=== PATIENT | male | born 1975 | race Caucasian/White ===

== ENCOUNTER 2019-05-09 13:37 | Observation (INO) ==
[2019-05-09 14:09] LABS: Basophils # 0.1 K/mcL (0.0-0.2); Basophils % 0.6 %; Eosinophils % 0.1 %; Hematocrit 47.1 % (37.5-50.1); Hemoglobin 16.3 g/dL (12.9-16.9); Immature Granulocytes % 0.6 % (0-4); Lymphocytes # 1.1 K/mcL (0.6-4.6); Lymphocytes % 9.1 %; Mean Corpuscular HGB Conc 34.6 g/dL (31.6-35.5); Mean Corpuscular Hemoglobin 30.1 pg (28.0-33.3); Mean Corpuscular Volume 86.9 fL (83.0-100.0); Mean Platelet Volume 8.9 fL (9.4-12.4); Monocytes # 0.7 K/mcL (0.0-1.3); Monocytes % 5.8 %; Neutrophils # 10.5 K/mcL (1.6-8.9); Platelet Count 339 K/mcL (140-400); Red Blood Count 5.42 M/mcL (4.19-5.50); Red Cell Distribution Width 12.4 % (11.5-14.5); Segmented Neutrophils % 83.8 %; White Blood Count 12.6 K/mcL (4.3-11.1)
[2019-05-09 14:35] LABS: BUN/Creatinine Ratio 8 (6-26); Blood Urea Nitrogen 10 mg/dL (6-20); Calcium 9.5 mg/dL (8.6-10.3); Carbon Dioxide 32 mEq/L (23-29); Chloride 97 mEq/L (98-107); Glucose 119 mg/dL (70-105); Osmolality,Calculated 288 (280-300); Potassium 3.1 mEq/L (3.5-5.1); Sodium 139 mEq/L (136-145); Troponin I < 0.03 ng/mL (< 0.04); eGFR For African Americans > 60 (> 60); eGFR For Non-African Americans > 60 (> 60)
[2019-05-09] MEDS ORDERED: 0.9 % Sodium Chloride 1,000 ML IVC ONE (14:41)
[2019-05-09] MEDS ORDERED: Ketorolac 15 MG/ML VIAL IVP ONE (14:41)
[2019-05-09] MEDS ORDERED: *HR* HYDROcodone/Acet 5/325 mg TABLET PO ONE (14:41)
[2019-05-09] MEDS ORDERED: Isovue-370 500 ML BOTTLE IVP ONE (15:02)
[2019-05-09] MEDS ORDERED: methylPREDNISolone 125 MG/2 ML VIAL IVP ONE (15:56)
[2019-05-09] MEDS ORDERED: Ipratropium/Albuterol Neb 3 ML IH ONE (15:56)
[2019-05-09] MEDS ORDERED: Azithromycin 500 MG in D5% in Water 250 ML IVPB ONE (16:06)
[2019-05-09 20:26] LABS: Adenovirus Not Detected (Not Detect); Bordetella Pertussis Not Detected (Not Detect); Chlamydophila pneumoniae Not Detected (Not Detect); Coronavirus 229E Not Detected (Not Detect); Coronavirus HKU1 Not Detected (Not Detect); Coronavirus NL63 Not Detected (Not Detect); Coronavirus OC43 Not Detected (Not Detect); Human Metapneumovirus Not Detected (Not Detect); Human Rhinovirus/Enterovirus Not Detected (Not Detect); Influenza A Subtype 2009 H1 Not Detected (Not Detect); Influenza B Not Detected (Not Detect); Mycoplasma pneumoniae Not Detected (Not Detect); Parainfluenza Virus 1 Not Detected (Not Detect); Parainfluenza Virus 2 Not Detected (Not Detect); Parainfluenza Virus 3 Not Detected (Not Detect); Parainfluenza Virus 4 Not Detected (Not Detect); Respiratory Syncytial Virus Not Detected (Not Detect)
[2019-05-09] MEDS ORDERED: Naloxone 0.4 MG/ML INJ IVP PRN (22:07)
[2019-05-09] MEDS ORDERED: Albuterol 2.5 MG/3 ML NEBULIZER IH PRN (22:10)
[2019-05-09] MEDS ORDERED: Acetaminophen 325 MG TABLET PO PRN (22:12)
[2019-05-09] MEDS ORDERED: Ondansetron 4 MG/2 ML VIAL IVP PRN (22:12)
[2019-05-09] MEDS: Nicotine 21 MG PATCH.TD24 TD SCH (22:27)
[2019-05-09] MEDS: Ipratropium/Albuterol Neb 3 ML IH SCH (22:34)
[2019-05-09] MEDS: *HR* Heparin 5,000 UNIT/ML VIAL SQ SCH (23:19)
[2019-05-10] MEDS ORDERED: Aspirin 325 MG TABLET PO ONE (00:29)
[2019-05-10 02:13] LABS: Hemoglobin 15.5 g/dL (12.9-16.9); Mean Corpuscular HGB Conc 33.7 g/dL (31.6-35.5); Mean Corpuscular Hemoglobin 29.8 pg (28.0-33.3); Mean Corpuscular Volume 88.3 fL (83.0-100.0); Platelet Count 321 K/mcL (140-400); Red Blood Count 5.21 M/mcL (4.19-5.50); Red Cell Distribution Width 12.4 % (11.5-14.5)
[2019-05-10 02:41] LABS: BUN/Creatinine Ratio 12 (6-26); Blood Urea Nitrogen 12 mg/dL (6-20); Calcium 9.1 mg/dL (8.6-10.3); Carbon Dioxide 25 mEq/L (23-29); Chloride 105 mEq/L (98-107); Glucose 187 mg/dL (70-105); Magnesium 2.2 mg/dL (1.6-2.6); Osmolality,Calculated 287 (280-300); Phosphorous 1.8 mg/dL (2.7-4.5); Potassium 4.4 mEq/L (3.5-5.1); Sodium 136 mEq/L (136-145); eGFR For African Americans > 60 (> 60); eGFR For Non-African Americans > 60 (> 60)
[2019-05-10] MEDS: Ipratropium/Albuterol Neb 3 ML IH SCH ×4 (03:52→22:30)
[2019-05-10] MEDS: *HR* Heparin 5,000 UNIT/ML VIAL SQ SCH ×2 (05:21→17:14)
[2019-05-10] MEDS ORDERED: Regadenoson 0.4 MG/5 ML SYRINGE IVP ONE (06:03)
[2019-05-10] MEDS: predniSONE 20 MG TABLET PO SCH (09:45)
[2019-05-10] MEDS: Nicotine 21 MG PATCH.TD24 TD SCH (09:45)
[2019-05-10] MEDS: 0.9 % Sodium Chloride 1,000 ML IVC SCH (14:14)
[2019-05-10] MEDS ORDERED: Azithromycin 500 MG in 0.9 % Sodium Chloride 250 ML IVPB SCH (16:00)
[2019-05-10] MEDS: Doxycycline 100 MG in 0.9 % Sodium Chloride Mini Bag 100 ML IVPB SCH (17:14)
[2019-05-11] MEDS: 0.9 % Sodium Chloride 1,000 ML IVC SCH (01:33)
[2019-05-11] MEDS: Ipratropium/Albuterol Neb 3 ML IH SCH ×2 (03:40→10:20)
[2019-05-11] MEDS: *HR* Heparin 5,000 UNIT/ML VIAL SQ SCH (05:25)
[2019-05-11] MEDS: Doxycycline 100 MG in 0.9 % Sodium Chloride Mini Bag 100 ML IVPB SCH (05:26)
[2019-05-11 05:41] LABS: Hematocrit 42.1 % (37.5-50.1); Mean Corpuscular HGB Conc 32.1 g/dL (31.6-35.5); Mean Corpuscular Hemoglobin 29.7 pg (28.0-33.3); Mean Corpuscular Volume 92.7 fL (83.0-100.0); Mean Platelet Volume 9.2 fL (9.4-12.4); Platelet Count 270 K/mcL (140-400); Red Blood Count 4.54 M/mcL (4.19-5.50); Red Cell Distribution Width 12.8 % (11.5-14.5); White Blood Count 10.5 K/mcL (4.3-11.1)
[2019-05-11 05:42] LABS: Hemoglobin 13.5 g/dL (12.9-16.9)
[2019-05-11 06:01] LABS: BUN/Creatinine Ratio 24 (6-26); Blood Urea Nitrogen 19 mg/dL (6-20); Calcium 8.4 mg/dL (8.6-10.3); Carbon Dioxide 24 mEq/L (23-29); Chloride 110 mEq/L (98-107); Glucose 116 mg/dL (70-105); Magnesium 1.9 mg/dL (1.6-2.6); Osmolality,Calculated 295 (280-300); Potassium 3.5 mEq/L (3.5-5.1); Sodium 141 mEq/L (136-145); eGFR For African Americans > 60 (> 60); eGFR For Non-African Americans > 60 (> 60)
[2019-05-11 06:29] VITALS: BP 132/94
[2019-05-11] MEDS: Nicotine 21 MG PATCH.TD24 TD SCH (08:53)
[2019-05-11] MEDS: predniSONE 20 MG TABLET PO SCH (08:53)
== END 2019-05-11 11:57 | disposition home or self-care (01) ==
LOC: EMEROOARM 13:37 → 2NENU 13:37 → SUATTDRO 18:24 → 2NENU 19:54
PROVIDERS: ADMIT Internal Medicine; ATTEND Pharmacist